=== PATIENT | male | born 1960 | race Caucasian/White ===

== ENCOUNTER → 2017-12-05 | Outpatient (CLI) | payer BC ==
[2017-12-05 09:23] LABS: HEMATOCRIT 46.2 % (42-52); HEMOGLOBIN 16.7 g/dL (14.0-18.0); MEAN CELL VOLUME 89.9 fL (80-100); MEAN CORPUSCULAR HEMOGLOBIN 32.5 pg (25-34); MEAN CORPUSCULAR HGB CONC 36.1 g/dl (32-36); PLATELET COUNT 351 K/uL (130-400); RED CELL DISTRIBUTION WIDTH CV 13.6 % (11.5-14.5); RED CELL DISTRIBUTION WIDTH SD 45.1 fL (36.4-46.3); WHITE BLOOD COUNT 7.68 K/uL (4.8-10.8)
[2017-12-05 09:39] LABS: HEMOGLOBIN A1C 5.5 % (4.5-5.6)
[2017-12-05 09:52] LABS: ALT/SGPT 29 U/L (12-78); AST/SGOT 13 U/L (15-37); BLOOD UREA NITROGEN 19 mg/dl (7-18); CARBON DIOXIDE 27 mmol/L (21-32); CHOLESTEROL 173 mg/dl (0-200); CREATININE 1.02 mg/dl (0.60-1.40); GLUCOSE 89 mg/dl (70-99); POTASSIUM 4.3 mmol/L (3.5-5.1); SODIUM 136 mmol/L (136-145)
[2017-12-05 10:03] LABS: ALKALINE PHOSPHATASE 72 U/L (45-117); LDL CHOLESTEROL CALCULATED 99 mg/dl; TOTAL PROTEIN 7.6 gm/dl (6.4-8.2)
== END | disposition home or self-care (01) ==
LOC: C.LAB 08:11
PROVIDERS: ATTEND Family Medicine
DX: R73.09 Other abnormal glucose (principal)